=== PATIENT | male | born 1995 | race Caucasian/White ===

== ENCOUNTER 2017-06-24 16:16 | Emergency (ER) | payer SELFPAY ==
--- NOTE | 2017-06-24 17:22 | EDM.PDOC ---
<Maura Min - Last Filed: 06/24/17 18:10> ED HPI GENERAL MEDICAL PROBLEM - General Chief Complaint: Abdominal Pain Stated Complaint: POSSIBLE APPENDEX Time Seen by Provider: 06/24/17 17:10 Source of Information: Reports: Patient History Limitations: Reports: No Limitations - History of Present Illness INITIAL COMMENTS - FREE TEXT/NARRATIVE: Patient is a 22 YO male who presents today with right lower quadrant pain. He states this started approximately 1 week ago. He describes the pain as a squeezing sensation located in all lower quadrants but greatest in the RLQ, wrapping around to his back. He states this was intermittent until this morning when it became constant. He woke up feeling nauseous and reports diarrhea all day today. He denies blood in the stool. His last formed bowel movement was yesterday which he reports was normal for him. He has only drank some lemonade and milk today. He ate a full meal including a hamburger and fries yesterday. He has had an appetite but is scared to eat due to the diarrhea. He denies any symptoms like this in the past. He does state his daughter was sick with an upper respiratory cold recently. Right Lower Abdominal Pain Score (Numeric/FACES): 4 - Related Data Allergies Allergy/AdvReac Type Severity Reaction Status Date / Time No Known Allergies Allergy Verified 06/24/17 16:33 Home Meds: Home Meds . [No Known Home Meds] 06/24/17 [History] Past Medical History - Past Health History Medical/Surgical History: Denies Medical/Surgical History Social & Family History - Tobacco Use Smoking Status *Q: Current Every Day Smoker Years of Tobacco use: 4 Packs/Tins Daily: 0.5 - Caffeine Use Caffeine Use: Reports: Soda - Recreational Drug Use Recreational Drug Use: Yes Drug Use in Last 12 Months: Yes Recreational Drug Type: Reports: Marijuana/Hashish Recreational Drug Use Frequency: Weekly ED ROS GENERAL - Review of Systems Review Of Systems: See Below Constitutional: Reports: No Symptoms Respiratory: Reports: No Symptoms Cardiovascular: Reports: No Symptoms GI/Abdominal: Reports: Abdominal Pain (LLQ and RLQ radiating into the right back ), Diarrhea, Nausea. Denies: Bloody Stool, Distension, Vomiting : Reports: No Symptoms Musculoskeletal: Reports: No Symptoms Skin: Reports: No Symptoms Neurological: Reports: No Symptoms Psychiatric: Reports: No Symptoms ED EXAM, GI/ABD - Physical Exam Exam: See Below Exam Limited By: No Limitations General Appearance: Alert, WD/WN, No Apparent Distress Throat/Mouth: Normal Inspection, Normal Teeth, Normal Gums, Normal Oropharynx, Normal Voice Head: Atraumatic, Normocephalic Respiratory/Chest: No Respiratory Distress, Lungs Clear, Normal Breath Sounds Cardiovascular: Normal Peripheral Pulses, Regular Rate, Rhythm, No Murmur GI/Abdominal Exam: Normal Bowel Sounds, Soft, Tender (slightly tender in the right lower quadrant), Other (negative obturator sign, negative psoas sign). No : Distended, Guarding, Rebound Back Exam: No: CVA Tenderness (L), CVA Tenderness (R) Neurological: Alert, Oriented, CN II-XII Intact, Normal Cognition, Normal Gait Psychiatric: Normal Affect, Normal Mood Skin Exam: Warm, Dry, Intact, Normal Color Course - Vital Signs Last Recorded V/S: Last Vital Signs Temp 37.3 C 06/24/17 16:26 Pulse 82 06/24/17 16:26 Resp 18 06/24/17 16:26 BP 118/85 06/24/17 16:26 Pulse Ox 98 06/24/17 16:26 - Orders/Labs/Meds Orders: Active Orders 24 hr Category Date Time Status Peripheral IV Care [RC] . DIRECTED Care 06/24/17 17:46 Active Peripheral IV Insertion Adult [OM.PC] Routine Oth 06/24/17 17:46 Ordered Labs: Laboratory Tests 06/24/17 06/24/17 06/24/17 Range/Units 16:40 16:40 17:35 WBC 8.31 (4.23-9.07) K/mm3 RBC 5.88 (4.63-6.08) M/mm3 Hgb 18.0 H (13.7-17.5) gm/L Hct 51.2 H (40.1-51.0) % MCV 87.1 (79.0-92.2) fl MCH 30.6 (25.7-32.2) pg MCHC 35.2 (32.2-35.5) g/dl RDW Std Deviation 41.1 (35.1-43.9) fL Plt Count 241 (163-337) K/mm3 MPV 10.2 (9.4-12.3) fl Neut % (Auto) Cancelled Lymph % (Auto) Cancelled Caroline % (Auto) Cancelled Eos % (Auto) Cancelled Baso % (Auto) Cancelled Neut # (Auto) Cancelled Lymph # (Auto) Cancelled Caroline # (Auto) Cancelled Eos # (Auto) Cancelled Baso # (Auto) Cancelled Neutrophils % (Manual) 69 H (40-60) % Band Neutrophils % 0 (0-10) % Lymphocytes % (Manual) 28 (20-40) % Atypical Lymphs % 0 % Monocytes % (Manual) 2 (2-10) % Eosinophils % (Manual) 1 (0.8-7.0) % Basophils % (Manual) 0 L (0.2-1.2) Manual Slide Review Cancelled Platelet Estimate Adequate RBC Morph Comment Normal Sodium 145 (136-145) mEq/L Potassium 3.7 (3.5-5.1) mEq/L Chloride 105 (98-107) mEq/L Carbon Dioxide 27 (21-32) mEq/L Anion Gap 16.7 H (5-15) BUN 12 (7-18) mg/dL Creatinine 0.9 (0.7-1.3) mg/dL Est Cr Clr Drug Dosing 113.68 mL/min Estimated GFR (MDRD) > 60 (>60) mL/min BUN/Creatinine Ratio 13.3 L (14-18) Glucose 91 (74-106) mg/dL Calcium 9.8 (8.5-10.1) mg/dL Total Bilirubin 1.3 H (0.2-1.0) mg/dL AST 15 (15-37) U/L ALT 17 (16-63) U/L Alkaline Phosphatase 101 (46-116) U/L C-Reactive Protein 0.2 (<1.0) mg/dL Total Protein 8.4 H (6.4-8.2) g/dl Albumin 4.8 (3.4-5.0) g/dl Globulin 3.6 gm/dL Albumin/Globulin Ratio 1.3 (1-2) Urine Color Dark yellow (Yellow) Urine Appearance Clear (Clear) Urine pH 6.0 (5.0-8.0) Ur Specific [place] > or = 1.030 (1.005-1.030) Urine Protein 1+ H (Negative) Urine Glucose (UA) Negative (Negative) Urine Ketones Negative (Negative) Urine Occult Blood Negative (Negative) Urine Nitrite Negative (Negative) Urine Bilirubin 1+ H (Negative) Urine Urobilinogen 0.2 (0.2-1.0) Ur Leukocyte Esterase Negative (Negative) Urine RBC 0-5 (0-5) /hpf Urine WBC 0-5 (0-5) /hpf Ur Epithelial Cells 0-5 (0-5) /hpf Urine Bacteria Moderate H (FEW) /hpf Urine Mucus Many H (FEW) /hpf Meds: Medications Discontinued Medications Generic Name Dose Route Start Last Admin Trade Name Freq PRN Reason Stop Dose Admin Diatrizoate Meglum/Diatrizoate Sod 120 ml 06/24/17 18:35 06/24/17 19:11 Gastrografin 37% PO 06/24/17 18:36 90 ml ONETIME ONE Administration Lactated Ringer's 1,000 mls @ 999 mls/hr 06/24/17 17:46 06/24/17 17:53 Ringers, Lactated IV 06/24/17 18:46 999 mls/hr .BOLUS ONE Administration Iopamidol 150 ml 06/24/17 18:35 06/24/17 19:07 Isovue-300 (61%) IVPUSH 06/24/17 18:36 125 ml ONETIME ONE Administration Sodium Chloride 10 ml 06/24/17 17:46 06/24/17 17:54 Saline Flush FLUSH 10 ml ASDIRECTED PRN Administration Keep Vein Open Sodium Chloride 10 ml 06/24/17 18:35 06/24/17 19:07 Saline Flush FLUSH 10 ml ONETIME PRN Administration IV FLUSH Departure - Departure Disposition: Home, Self-Care 01 Clinical Impression: Gastroenteritis - Discharge Information Instructions: Viral Gastroenteritis, Adult, [id number] Referrals: PCP,None [Primary Care Provider] - Forms: ED Department Discharge Additional Instructions: Clear fluids today and tomorrow. Zapata diet as tolerated. Zapata diet recommendations include bread, crackers, rice, toast, egg whites, yogurt, etc. Follow-up with your primary care provider if symptoms persist beyond one week. Recommend starting a probiotic. These are available [id number]. Please return to the ER if your symptoms change or worsen. - My Orders Last 24 Hours: My Active Orders 06/24/17 17:46 Peripheral IV Care [RC] . DIRECTED Peripheral IV Insertion Adult [OM.PC] Routine - Assessment/Plan Last 24 Hours: My Active Orders 06/24/17 17:46 Peripheral IV Care [RC] . DIRECTED Peripheral IV Insertion Adult [OM.PC] Routine <Marycruz Latham - Last Filed: 06/25/17 01:26> ED HPI GENERAL MEDICAL PROBLEM - History of Present Illness INITIAL COMMENTS - FREE TEXT/NARRATIVE: Patient initially seen by JAKI Martinez. I have seen the patient and agree with the above HPI. Duration: Week(s): (1) Location: Reports: Abdomen (RLQ) ED EXAM, GI/ABD - Physical Exam GI/Abdominal Exam: Tender Course - Radiology Interpretation Free Text/Narrative:: CT abdomen and pelvis Technique: Multiple axial sections were obtained from above the dome of the diaphragm inferiorly through the pubic symphysis. Intravenous and oral contrast was utilized. Delayed images were obtained through the bladder. Comparison: No previous study. Findings: Visualized lung bases shows nothing acute. Liver appears within normal limits. Spleen appears normal. Adrenal glands contain no nodules. Pancreas appears within normal limits. Kidneys show symmetric contrast enhancement without hydronephrosis or mass. Aorta shows no aneurysmal dilatation. No retroperitoneal adenopathy or mesenteric abnormalities are seen. No pelvic mass or adenopathy is seen. Fluid is seen within the rectum and within portions of the sigmoid colon as well as descending colon. Mild amount of increased gas is noted throughout the small bowel as well as within portions of the colon. Appendix not definitely visualized but no enlarged tubular structures are seen within the right lower abdomen. No inflammatory change or free fluid is seen. Delayed images were obtained which shows contrast within the bladder. Impression: 1. Gas within mildly dilated small bowel as well as increased gas within the colon having the appearance of an ileus. Fluid within the colon and rectum is noted. Findings raise the possibility of gastroenteritis. 2. Appendix not definitely visualized. 3. No additional abnormality is identified on CT study of the abdomen and pelvis. - Re-Assessments/Exams Free Text/Narrative Re-Assessment/Exam: 06/24/17 20:32 I have seen the patient and agree with the history of present illness, review of systems and physical exam as documented by JAGJIT Martinez. Patient was offered pain medication but declined. I reviewed the CT and lab results with the patient. Will treat for gastroenteritis. Plan will be to discharge home at this time. Discharge instructions as documented . Departure - Departure Time of Disposition: 20:33 Condition: Fair
[2017-06-24] MEDS ORDERED: Diatrizoate Meglumine/Diatrizoate Sodium 37% 120 ML Bottle PO ONE ×2 (17:40→18:35)
[2017-06-24] MEDS ORDERED: Iodixanol 652 MG/ML 100 ML Bottle IVPUSH ONE (17:40)
[2017-06-24] MEDS ORDERED: Lactated Ringers 1,000 ML IV ONE (17:46)
[2017-06-24] MEDS ORDERED: Sodium Chloride 0.9% 10 ML Syringe FLUSH PRN ×2 (17:46→18:35)
[2017-06-24] MEDS ORDERED: Iopamidol 612 MG/ML 150 ML Bottle IVPUSH ONE (18:35)
--- NOTE | 2017-06-24 19:38 | CT ---
CT abdomen and pelvis Technique: Multiple axial sections were obtained from above the dome of the diaphragm inferiorly through the pubic symphysis. Intravenous and oral contrast was utilized. Delayed images were obtained through the bladder. Comparison: No previous study. Findings: Visualized lung bases shows nothing acute. Liver appears within normal limits. Spleen appears normal. Adrenal glands contain no nodules. Pancreas appears within normal limits. Kidneys show symmetric contrast enhancement without hydronephrosis or mass. Aorta shows no aneurysmal dilatation. No retroperitoneal adenopathy or mesenteric abnormalities are seen. No pelvic mass or adenopathy is seen. Fluid is seen within the rectum and within portions of the sigmoid colon as well as descending colon. Mild amount of increased gas is noted throughout the small bowel as well as within portions of the colon. Appendix not definitely visualized but no enlarged tubular structures are seen within the right lower abdomen. No inflammatory change or free fluid is seen. Delayed images were obtained which shows contrast within the bladder. Impression: 1. Gas within mildly dilated small bowel as well as increased gas within the colon having the appearance of an ileus. Fluid within the colon and rectum is noted. Findings raise the possibility of gastroenteritis. 2. Appendix not definitely visualized. 3. No additional abnormality is identified on CT study of the abdomen and pelvis. Diagnostic code #2
== END 2017-06-24 20:40 | disposition home or self-care (01) ==
LOC: JD.ED 16:16
DX: K52.9 Noninfective gastroenteritis and colitis, unspecified (principal); F17.210 Nicotine dependence, cigarettes, uncomplicated
CPT/HCPCS: 36415; 74177; 80053; 81001; 85025; 86140; 96360; 99284; J7050; J7120; Q9963; Q9967; 99283

== ENCOUNTER 2017-11-01 14:46 | Emergency (ER) | payer SELFPAY ==
[2017-11-01] MEDS ORDERED: Sodium Chloride 0.9% 10 ML Syringe FLUSH PRN (15:25)
[2017-11-01] MEDS ORDERED: Ketorolac 30 MG/ML SDV IVPUSH ONE (15:25)
[2017-11-01] MEDS ORDERED: Prochlorperazine 10 MG/2 ML SDV IVPUSH ONE (15:26)
[2017-11-01] MEDS ORDERED: diphenhydrAMINE 50 MG/ML SDV IVPUSH ONE (15:26)
[2017-11-01] MEDS ORDERED: Diphtheria,Pertussis(Acell),Tetanus Vaccine 0.5 ML SDV IM ONE (15:26)
--- NOTE | 2017-11-01 17:19 | EDM.PDOC ---
ED HPI GENERAL MEDICAL PROBLEM - General Chief Complaint: Headache Stated Complaint: HEADACHE Time Seen by Provider: 11/01/17 15:25 Source of Information: Reports: Patient History Limitations: Reports: No Limitations - History of Present Illness INITIAL COMMENTS - FREE TEXT/NARRATIVE: The patient presents with a headache. 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 He had no LOC and he had no pain right away but after work he developed a headache. He took some tylenol and an antiinflammatory and that did not help. He has no neck pain, blurred vision, double vision, numbness or weakness. He had an injury to his right leg weeks ago. His tetanus was not up to date so he asked if we could up date that now. Onset: Gradual Duration: Hour(s): Location: Reports: Head Quality: Reports: Ache Severity: Moderate Improves with: Reports: None Worsens with: Reports: None Associated Symptoms: Reports: Headaches. Denies: Chest Pain, Cough, Fever/ Chills, Nausea/Vomiting, Shortness of Breath Left Headache Pain Score (Numeric/FACES): 7 - Related Data Allergies Allergy/AdvReac Type Severity Reaction Status Date / Time No Known Allergies Allergy Verified 10/30/17 03:36 Home Meds: Home Meds . [No Known Home Meds] 10/30/17 [History] Past Medical History - Past Health History Medical/Surgical History: Denies Medical/Surgical History Social & Family History - Tobacco Use Smoking Status *Q: Current Every Day Smoker Years of Tobacco use: 4 Packs/Tins Daily: 0.5 - Caffeine Use Caffeine Use: Reports: Soda Other Caffeine Use: daily - Recreational Drug Use Recreational Drug Type: Reports: Marijuana/Hashish ED ROS GENERAL - Review of Systems Review Of Systems: See Below Constitutional: Reports: No Symptoms HEENT: Reports: No Symptoms Respiratory: Reports: No Symptoms Cardiovascular: Reports: No Symptoms Endocrine: Reports: No Symptoms GI/Abdominal: Reports: No Symptoms : Reports: No Symptoms Musculoskeletal: Reports: No Symptoms Skin: Reports: No Symptoms Neurological: Reports: Headache - Physical Exam Exam: See Below Exam Limited By: No Limitations General Appearance: Alert, No Apparent Distress Ears: Normal External Exam Nose: Normal Inspection Head Exam: Normocephalic, Other (Mild tenderness to the left side of his head) Neck: Normal Inspection, Supple, Non-Tender Respiratory/Chest: No Respiratory Distress, Lungs Clear, Normal Breath Sounds Cardiovascular: Regular Rate, Rhythm, No Edema, No Murmur GI/Abdominal: Soft, Non-Tender, No Organomegaly, No Mass Neuro Exam (Abbreviated): Alert, Oriented, No Motor/Sensory Deficits Course - Vital Signs Last Recorded V/S: Last Vital Signs Temp 98.5 F 11/01/17 14:59 Pulse 76 11/01/17 14:59 Resp 20 11/01/17 14:59 BP 120/69 11/01/17 14:59 Pulse Ox 95 11/01/17 14:59 - Orders/Labs/Meds Orders: Active Orders 24 hr Category Date Time Status Peripheral IV Care [RC] . DIRECTED Care 11/01/17 15:25 Active Vaccines to be Administered [RC] PER UNIT ROUTINE Care 11/01/17 15:26 Active Sodium Chloride 0.9% [Saline Flush] Med 11/01/17 15:25 Active 10 ml FLUSH ASDIRECTED PRN Peripheral IV Insertion Adult [OM.PC] Routine Oth 11/01/17 15:25 Ordered Medication Orders Sodium Chloride (Saline Flush) 10 ml FLUSH ASDIRECTED PRN PRN Reason: Keep Vein Open Last Admin: 11/01/17 15:46 Dose: 10 ml Meds: Medications Generic Name Dose Route Start Last Admin Trade Name Freq PRN Reason Stop Dose Admin Sodium Chloride 10 ml 11/01/17 15:25 11/01/17 15:46 Saline Flush FLUSH 10 ml ASDIRECTED PRN Administration Keep Vein Open Discontinued Medications Generic Name Dose Route Start Last Admin Trade Name Freq PRN Reason Stop Dose Admin Diphenhydramine HCl 50 mg 11/01/17 15:26 11/01/17 15:45 Benadryl IVPUSH 11/01/17 15:27 50 mg ONETIME ONE Administration Diphtheria/Tetanus/Acell Pertussis 0.5 ml 11/01/17 15:26 11/01/17 15:46 Adacel IM 11/01/17 15:27 0.5 ml .ONCE ONE Administration Ketorolac Tromethamine 30 mg 11/01/17 15:25 11/01/17 15:45 Toradol IVPUSH 11/01/17 15:26 30 mg ONETIME ONE Administration Prochlorperazine Edisylate 10 mg 11/01/17 15:26 11/01/17 15:46 Compazine IVPUSH 11/01/17 15:27 10 mg ONETIME ONE Administration - Re-Assessments/Exams Free Text/Narrative Re-Assessment/Exam: 11/01/17 17:27 I updated his tetanus and I ordered an IV saline lock, toradol 30mg IV, benadryl 50mg IV and compazine 10mg IV. He feels better. I will discharge him home. Departure - Departure Time of Disposition: 17:30 Disposition: Home, Self-Care 01 Condition: Good Clinical Impression: Headache Qualifiers: Headache type: unspecified Headache chronicity pattern: acute headache Intractability: not intractable Qualified Code(s): R51 - Headache - Discharge Information *PRESCRIPTION DRUG MONITORING PROGRAM REVIEWED*: Not Applicable *COPY OF PRESCRIPTION DRUG MONITORING REPORT IN PATIENT KELLY: Not Applicable Referrals: PCP,None [Primary Care Provider] - Forms: ED Department Discharge Additional Instructions: Go home and rest in a dark quiet room. Take tylenol or motrin if you have any more headaches. Please return if you are worse. - My Orders Last 24 Hours: My Active Orders 11/01/17 15:25 Peripheral IV Care [RC] . DIRECTED Sodium Chloride 0.9% [Saline Flush] 10 ml FLUSH ASDIRECTED PRN Peripheral IV Insertion Adult [OM.PC] Routine 11/01/17 15:26 Vaccines to be Administered [RC] PER UNIT ROUTINE - Assessment/Plan Last 24 Hours: My Active Orders 11/01/17 15:25 Peripheral IV Care [RC] . DIRECTED Sodium Chloride 0.9% [Saline Flush] 10 ml FLUSH ASDIRECTED PRN Peripheral IV Insertion Adult [OM.PC] Routine 11/01/17 15:26 Vaccines to be Administered [RC] PER UNIT ROUTINE
== END 2017-11-01 17:40 | disposition home or self-care (01) ==
LOC: JD.ED 14:46
DX: R51 Headache (principal); F17.210 Nicotine dependence, cigarettes, uncomplicated
CPT/HCPCS: 90471; 90715; 96374; 96375; 99284; J0780; J1200; J1885; J7050

== ENCOUNTER 2017-11-04 00:38 | Emergency (ER) | payer SELFPAY ==
--- NOTE | 2017-11-04 01:50 | EDM.PDOC ---
ED HPI GENERAL MEDICAL PROBLEM - General Chief Complaint: General Stated Complaint: RHB Time Seen by Provider: 11/04/17 01:22 Source of Information: Reports: Patient History Limitations: Reports: No Limitations - History of Present Illness INITIAL COMMENTS - FREE TEXT/NARRATIVE: Medical records indicate that the patient was seen in this ED by Dr. Gabriela Cramer on 10/19/2017 with a complaint of 2 weeks of nausea and diarrhea, after starting sertraline for anxiety. He was prescribed Zofran. The patient was then seen in this ED by Dr. Efra Cramer on 10/26/2017 with a complaint of a lump to the back of his neck for the previous 2 months. He was found to have a minimally enlarged lymph node, and reassured. The patient was then seen again in this ED by Dr. Gabriela Cramer on 10/30/2017 with chest pain. A workup was negative. The patient was then seen again in this ED by Dr. Jhaveri on 11/01/2017 with a complaint of a headache after striking his head as he got into his car. Again, he was reassured. The patient then followed up with his PCP, Marcy Rutledge, this past Thursday , 11/02/2017. The patient states that they discussed the enlarged lymph node, and that she ordered an outpatient ultrasound, but that his anxiety issue was not discussed. The patient now presents stating that he developed the sensation of a strong, but not rapid, heartbeat, a headache to the back right of his head, and right upper extremity tingling and floating sensation around 00:30, shortly after he went to bed. The patient states that he felt quite anxious. His symptoms resolved shortly after arrival to the ED. The patient states that he stopped taking his Zoloft shortly after he saw Dr. Gabriela Cramer on 10/19/2017. Here in the ED, the patient is found to be hemodynamically stable, although his oxygen saturation was noted to be 98% on room air. head Pain Score (Numeric/FACES): 4 - Related Data Allergies Allergy/AdvReac Type Severity Reaction Status Date / Time No Known Allergies Allergy Verified 11/04/17 01:05 Home Meds: Home Meds . [No Known Home Meds] 10/30/17 [History] Past Medical History Psychiatric History: Reports: Anxiety (untreated) - Past Surgical History HEENT Surgical History: Reports: Oral Surgery (wisdom teeth extraction) Social & Family History - Family History Family Medical History: Noncontributory - Tobacco Use Smoking Status *Q: Current Every Day Smoker Years of Tobacco use: 4 Packs/Tins Daily: 0.5 Packs/Tins Daily Comment: Down from 1 ppd - Caffeine Use Caffeine Use: Reports: Soda Other Caffeine Use: daily - Alcohol Use Alcohol Use History: No - Recreational Drug Use Recreational Drug Use: Yes Drug Use in Last 12 Months: Yes Recreational Drug Type: Reports: Marijuana/Hashish (last smoked mid September 2017) - Living Situation & Occupation Living situation: Reports: Single, Other (with roommates) Occupation: Employed (Videofropper) ED ROS GENERAL - Review of Systems Review Of Systems: ROS reveals no pertinent complaints other than HPI. ED EXAM, GENERAL - Physical Exam Exam: See Below Exam Limited By: No Limitations General Appearance: Alert, WD/WN, No Apparent Distress Eye Exam: Bilateral Eye: EOMI, Normal Inspection Ears: Normal External Exam, Hearing Grossly Normal Nose: Normal Inspection, No Blood Throat/Mouth: Normal Inspection, Normal Lips, Normal Voice, No Airway Compromise Head: Atraumatic, Normocephalic Neck: Normal Inspection, Full Range of Motion, Lymphadenopathy (R) (VERY small - less than 0.5 cm diameter, along the posterior cervical chain) Respiratory/Chest: No Respiratory Distress, Lungs Clear, Normal Breath Sounds, No Accessory Muscle Use Cardiovascular: Normal Peripheral Pulses, Regular Rate, Rhythm, No Edema, No Gallop, No JVD, No Murmur, No Rub Peripheral Pulses: 4+: Radial (L), Radial (R) GI/Abdominal: Normal Bowel Sounds, Soft, Non-Tender, No Organomegaly, No Distention, No Abnormal Bruit, No Mass (Male) Exam: Deferred Rectal (Males) Exam: Deferred Back Exam: Normal Inspection, Full Range of Motion, NT Extremities: Normal Inspection, Normal Range of Motion, No Pedal Edema, Normal Capillary Refill Neurological: Alert, Oriented, Normal Cognition, No Motor/Sensory Deficits Psychiatric: Anxious Skin Exam: Warm, Dry, Intact, Normal Color, No Rash Course - Vital Signs Last Recorded V/S: Last Vital Signs Temp 37.1 C 11/04/17 01:02 Pulse 77 11/04/17 01:02 Resp 18 08/15/18 01:02 BP 125/81 11/04/17 01:02 Pulse Ox 98 11/04/17 01:02 - Re-Assessments/Exams Free Text/Narrative Re-Assessment/Exam: 11/04/17 01:40 The patient presents with palpitations, a headache felt to the back right side of his head, and right upper extremity tingling and a floating sensation. All of these symptoms, as well as those symptoms responsible for his 4 prior ED visits since 10/19/2017, can be explained by anxiety and hyperventilation syndrome. The patient was previously on Zoloft, but quit about 2 weeks ago secondary to nausea and diarrhea. I strongly recommended that the patient follow -up with his PCP, aMrcy Rutledge, to discuss other treatment options for anxiety. The patient agreed. Departure - Departure Time of Disposition: 01:42 Disposition: Home, Self-Care 01 Condition: Good Clinical Impression: Hyperventilation syndrome, Anxiety - Discharge Information *PRESCRIPTION DRUG MONITORING PROGRAM REVIEWED*: Not Applicable *COPY OF PRESCRIPTION DRUG MONITORING REPORT IN PATIENT KELLY: Not Applicable Referrals: Marcy Rutledge PA-C [Physician Sleeve Separator] - Additional Instructions: You were seen in the emergency room for heart palpitations, a headache, and right arm tingling and floating sensation. All of your symptoms, including those responsible for your 4 previous ER visits , can be explained by anxiety and hyperventilation syndrome. As discussed, while not harmful, anxiety and hyperventilation adversely affect the quality of your life, and for this reason, we strongly recommend that you talk to your PCP, Marcy Rutledge, about treatment options for anxiety. Be aware that most medicines take several weeks or months to become fully effective , so you need to be patient and persistent. If any other problems, please do not hesitate to return to the ER.
== END 2017-11-04 01:50 | disposition home or self-care (01) ==
LOC: JD.ED 00:38
DX: F45.8 Other somatoform disorders (principal); F41.9 Anxiety disorder, unspecified; F17.210 Nicotine dependence, cigarettes, uncomplicated
CPT/HCPCS: 99283; 99284

== ENCOUNTER 2018-08-18 01:50 | Emergency (ER) | payer SELFPAY ==
--- NOTE | 2018-08-18 06:09 | EDM.PDOC ---
ED HPI GENERAL MEDICAL PROBLEM - General Chief Complaint: Abdominal Pain Stated Complaint: PULSING SENSATION IN STOMACH Time Seen by Provider: 08/18/18 02:00 Source of Information: Reports: Patient History Limitations: Reports: No Limitations - History of Present Illness INITIAL COMMENTS - FREE TEXT/NARRATIVE: The patient presents with abdominal pain and diarrhea. This has been going on for over a week. He says the has a gurgling feeling in the middle of his abdomen and times. It is not associated with anything such as eating. He has no nausea or vomiting. He has some diarrhea at times. He has no dysuria or hematuria. He has no fever or chills. He still has his appendix and gallbladder. Onset: Gradual Duration: Week(s): Location: Reports: Abdomen Quality: Reports: Other (Gurgling) Severity: Mild Improves with: Reports: None Worsens with: Reports: None Associated Symptoms: Reports: No Other Symptoms - Related Data Allergies Allergy/AdvReac Type Severity Reaction Status Date / Time No Known Allergies Allergy Verified 08/18/18 05:55 Home Meds: Home Meds Doxycycline [Vibramycin] 100 mg PO BID #20 cap 02/15/18 [Rx] Past Medical History - Past Health History Medical/Surgical History: Denies Medical/Surgical History Psychiatric History: Reports: Anxiety - Past Surgical History HEENT Surgical History: Reports: Oral Surgery Social & Family History - Family History Family Medical History: Noncontributory - Caffeine Use Caffeine Use: Reports: Soda Other Caffeine Use: daily - Living Situation & Occupation Living situation: Reports: Single, Other (with roommates) Occupation: Employed ([employer]) ED ROS GENERAL - Review of Systems Review Of Systems: See Below Constitutional: Reports: No Symptoms HEENT: Reports: No Symptoms Respiratory: Reports: No Symptoms Cardiovascular: Reports: No Symptoms Endocrine: Reports: No Symptoms GI/Abdominal: Reports: Abdominal Pain, Diarrhea. Denies: Nausea, Vomiting : Reports: No Symptoms Musculoskeletal: Reports: No Symptoms ED EXAM, GI/ABD - Physical Exam Exam: See Below Exam Limited By: No Limitations General Appearance: Alert, No Apparent Distress Ears: Normal External Exam Nose: Normal Inspection Head: Atraumatic, Normocephalic Neck: Normal Inspection Respiratory/Chest: No Respiratory Distress, Lungs Clear, Normal Breath Sounds Cardiovascular: Regular Rate, Rhythm, No Edema, No Murmur GI/Abdominal Exam: Soft, No Organomegaly, No Mass, Tender (Mild tenderness to the mid abdomen) Course - Vital Signs Last Recorded V/S: Last Vital Signs Temp 98 F 08/18/18 05:55 Pulse 70 08/18/18 05:55 Resp 20 08/18/18 05:55 BP 123/70 08/18/18 05:55 Pulse Ox 99 08/18/18 05:55 - Orders/Labs/Meds Orders: Active Orders 24 hr Category Date Time Status Abdomen Series w Chest 1V [CR] Stat Exams 08/18/18 02:39 Taken - Re-Assessments/Exams Free Text/Narrative Re-Assessment/Exam: 08/18/18 06:06 I ordered labs and an x-ray of his abdomen. His x-ray looks good. His CBC and CMP look good. I am not sure what is causing his discomfort. I will have him try some tylenol, motrin and pepcid and see his doctor. Departure - Departure Time of Disposition: 06:10 Disposition: Home, Self-Care 01 Condition: Good Clinical Impression: Abdominal pain Qualifiers: Abdominal location: periumbilical Qualified Code(s): R10.33 - Periumbilical pain - Discharge Information *PRESCRIPTION DRUG MONITORING PROGRAM REVIEWED*: Not Applicable *COPY OF PRESCRIPTION DRUG MONITORING REPORT IN PATIENT KELLY: Not Applicable Referrals: PCP,None [Primary Care Provider] - Fernando Blankenship PA-C [Physician Operations Processor] - Forms: ED Department Discharge Additional Instructions: Drink plenty of fluids. Try some tylenol or motrin for pain. You may also try some pepcid 20mg daily. Please return if you are worse. - My Orders Last 24 Hours: My Active Orders 08/18/18 02:39 Abdomen Series w Chest 1V [CR] Stat - Assessment/Plan Last 24 Hours: My Active Orders 08/18/18 02:39 Abdomen Series w Chest 1V [CR] Stat
--- NOTE | 2018-08-18 08:11 | CR ---
Abdominal series: Supine and upright views of the abdomen were obtained as well as frontal view of the chest. Comparison: Prior chest x-ray of 02/15/18 and prior abdominal and pelvic CT exam of 06/24/17. Bowel gas pattern is normal. No abnormal calcifications or soft tissue abnormality is seen. Bony structures appear within normal limits. No free air is seen. Heart size and mediastinum are normal. Lungs are clear. Impression: 1. Nothing acute is seen on abdominal series. Diagnostic code #1
== END 2018-08-18 05:58 | disposition home or self-care (01) ==
LOC: JD.ED 01:50
DX: R10.33 Periumbilical pain (principal); R19.7 Diarrhea, unspecified
CPT/HCPCS: 36415; 74022; 74022-26; 80053; 85025; 99283; 99284-25

== ENCOUNTER 2019-09-06 14:41 | Emergency (ER) | payer SELFPAY ==
--- NOTE | 2019-09-06 15:13 | EDM.PDOC ---
ED HPI GENERAL MEDICAL PROBLEM - General Chief Complaint: Chest Pain Stated Complaint: CHEST PAIN Time Seen by Provider: 09/06/19 15:10 Source of Information: Reports: Patient, RN Notes Reviewed History Limitations: Reports: No Limitations - History of Present Illness INITIAL COMMENTS - FREE TEXT/NARRATIVE: Patient is a 24-year-old male who presents to the ED for evaluation of his left- sided chest pain. 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 Patient states he pulled over and had a coworker start driving, as he was beginning of a panic attack after this chest pain started. He states after he calm down the chest pain seemed to have gone away. 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 Patient denies any numbness or tingling into the fingers, or any weakness of the extremity, but he just feels like something is not right. He does state that he has a history of a heart murmur, but cannot elaborate on this otherwise he denies any other early cardiac etiologies that his family may have succumbed to. 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 Patient denies any cough/shortness of breath, fever/chills, nausea/ vomiting/diarrhea. He notes that the pain is a sharp shooting pain in nature, he has not been able to reproduce it by himself other than when he was driving the truck. Left Arm Pain Score (Numeric/FACES): 4 - Related Data Allergies Allergy/AdvReac Type Severity Reaction Status Date / Time No Known Allergies Allergy Verified 09/06/19 15:08 Home Meds: Home Meds . [No Known Home Meds] 09/06/19 [History] Past Medical History - Past Health History Medical/Surgical History: Denies Medical/Surgical History Cardiovascular History: Reports: Heart Murmur Respiratory History: Reports: None Gastrointestinal History: Reports: None Genitourinary History: Reports: None Musculoskeletal History: Reports: None Neurological History: Reports: None Psychiatric History: Reports: Anxiety Endocrine/Metabolic History: Reports: None Hematologic History: Reports: None Immunologic History: Reports: None Oncologic (Cancer) History: Reports: None Dermatologic History: Reports: None - Infectious Disease History Infectious Disease History: Reports: None - Past Surgical History HEENT Surgical History: Reports: Oral Surgery Social & Family History - Family History Family Medical History: Noncontributory - Tobacco Use Smoking Status *Q: Current Every Day Smoker Years of Tobacco use: 4 Packs/Tins Daily: 0.5 - Caffeine Use Caffeine Use: Reports: Soda, Tea Other Caffeine Use: daily - Recreational Drug Use Recreational Drug Use: No - Living Situation & Occupation Living situation: Reports: Single, Other (with roommates) Occupation: Employed ([employer]) ED ROS GENERAL - Review of Systems Review Of Systems: Comprehensive ROS is negative, except as noted in HPI. ED EXAM, GENERAL - Physical Exam Exam: See Below Exam Limited By: No Limitations General Appearance: Alert, WD/WN, No Apparent Distress Eye Exam: Bilateral Eye: EOMI, Normal Inspection, PERRL Ears: Normal External Exam Nose: Normal Inspection Throat/Mouth: Normal Inspection, Normal Lips, Normal Teeth, Normal Gums, Normal Oropharynx, Normal Voice, No Airway Compromise Head: Atraumatic, Normocephalic Neck: Normal Inspection, Supple, Non-Tender, Full Range of Motion Respiratory/Chest: No Respiratory Distress, Lungs Clear, Normal Breath Sounds, No Accessory Muscle Use, Other (Left anterior chest is tender on 4th-5th rib distribution, states that this is similar to the pain he experienced.) Cardiovascular: Normal Peripheral Pulses, Regular Rate, Rhythm, No Murmur (pt has history of murmur, however I cannot appreciated murmur on exam) Peripheral Pulses: 3+: Radial (L), Radial (R) GI/Abdominal: Normal Bowel Sounds, Soft, Non-Tender, No Distention, No Mass Extremities: Normal Inspection, Normal Range of Motion, Normal Capillary Refill Neurological: Alert, Oriented, Normal Cognition, No Motor/Sensory Deficits Psychiatric: Normal Affect, Normal Mood Skin Exam: Warm, Dry, Intact, Normal Color, No Rash EKG INTERPRETATION EKG Date: 09/06/19 Time: 15:30 Rhythm: NSR Rate (Beats/Min): 74 [place]: Normal P-Wave: Present QRS: Normal ST-T: Normal QT: Normal Comparison: NA - No Prior EKG EKG Interpretation Comments: No obvious ischemia or acute ST changes noted, reviewed by myself and Dr. Monreal. There is diffuse early repolarization pattern, this is a normal ECG variant for age. Course - Vital Signs Last Recorded V/S: Last Vital Signs Temp 98.4 F 09/06/19 15:05 Pulse 93 09/06/19 15:05 Resp 16 09/06/19 15:05 BP 131/82 09/06/19 15:05 Pulse Ox 98 09/06/19 15:05 - Orders/Labs/Meds Orders: Active Orders 24 hr Category Date Time Status EKG Documentation Completion [RC] STAT Care 09/06/19 15:13 Ordered Chest 2V [CR] Stat Exams 09/06/19 15:13 Ordered Labs: Laboratory Tests 09/06/19 09/06/19 Range/Units 14:40 14:40 WBC 5.80 (4.23-9.07) K/mm3 RBC 5.11 (4.63-6.08) M/mm3 Hgb 16.4 (13.7-17.5) gm/dl Hct 46.1 (40.1-51.0) % MCV 90.2 D (79.0-92.2) fl MCH 32.1 (25.7-32.2) pg MCHC 35.6 H (32.2-35.5) g/dl RDW Std Deviation 40.6 (35.1-43.9) fL Plt Count 224 (163-337) K/mm3 MPV 8.8 L (9.4-12.3) fl Neut % (Auto) 66.3 (34.0-67.9) % Lymph % (Auto) 18.3 L (21.8-53.1) % [place] % (Auto) 9.5 (5.3-12.2) % Eos % (Auto) 5.0 (0.8-7.0) Baso % (Auto) 0.7 (0.1-1.2) % Neut # (Auto) 3.85 (1.78-5.38) K/mm3 Lymph # (Auto) 1.06 L (1.32-3.57) K/mm3 [place] # (Auto) 0.55 (0.30-0.82) K/mm3 Eos # (Auto) 0.29 (0.04-0.54) K/mm3 Baso # (Auto) 0.04 (0.01-0.08) K/mm3 Sodium 143 (136-145) mEq/L Potassium 4.0 (3.5-5.1) mEq/L Chloride 106 (98-107) mEq/L Carbon Dioxide 26 (21-32) mEq/L Anion Gap 15.0 (5-15) BUN 9 (7-18) mg/dL Creatinine 1.0 (0.7-1.3) mg/dL Est Cr Clr Drug Dosing 104.14 mL/min Estimated GFR (MDRD) > 60 (>60) mL/min BUN/Creatinine Ratio 9.0 L (14-18) Glucose 117 H (74-106) mg/dL Calcium 8.6 (8.5-10.1) mg/dL Total Bilirubin 1.1 H (0.2-1.0) mg/dL AST 17 (15-37) U/L ALT 31 (16-63) U/L Alkaline Phosphatase 76 (46-116) U/L Troponin I < 0.017 (0.00-0.056) ng/mL Total Protein 6.9 (6.4-8.2) g/dl Albumin 3.8 (3.4-5.0) g/dl Globulin 3.1 gm/dL Albumin/Globulin Ratio 1.2 (1-2) - Re-Assessments/Exams Free Text/Narrative Re-Assessment/Exam: 09/06/19 15:27 Patient presents to the ED for evaluation of his left-sided chest pain and left arm pain. Pain was reproducible on exam, suggestive of musculoskeletal etiology in nature. However EKG chest x-ray and basic labs will be obtained to rule out further cardiac etiology. 09/06/19 16:40 Patient's labs are back and within normal limits at this time. Patient will be discharged home with general recommendations he will be directed to take ibuprofen every 6 hours for further pain relief. Departure - Departure Time of Disposition: 16:41 Disposition: Home, Self-Care 01 Condition: Good Clinical Impression: Acute chest wall pain Instructions: Chest Wall Pain, [id number] Referrals: PCP,None [Primary Care Provider] - Forms: ED Department Discharge, ED Return to Work/School Form Additional Instructions: You were evaluated in the ER today regarding your sudden onset left-sided chest pain. Your EKG, chest x-ray, and other lab work are within normal limits at today's visit. You are not suffering from a heart attack, your pain is most likely musculoskeletal in nature, highly recommend you take ibuprofen, 600 mg every 6 hours for further discomfort. It is likely that you strained a chest muscle while moving some heavy furniture due to your line of work. If your chest pain should change in nature, or it does not get much better within a week to 10 days time, recommend you seek care for reevaluation. You may also try ice pack/heat packs to the area to provide further relief. Please return to the ER at any time if symptoms change or worsen. Sepsis Event Note (ED) - Evaluation Sepsis Screening Result: No Definite Risk - Focused Exam Vital Signs: Vital Signs Temp Pulse Resp BP Pulse Ox 09/06/19 15:05 98.4 F 93 16 131/82 98 - My Orders Last 24 Hours: My Active Orders 09/06/19 15:13 EKG Documentation Completion [RC] STAT Chest 2V [CR] Stat - Assessment/Plan Last 24 Hours: My Active Orders 09/06/19 15:13 EKG Documentation Completion [RC] STAT Chest 2V [CR] Stat
--- NOTE | 2019-09-07 07:37 | CR ---
Chest: 2 views of the chest were obtained. Comparison: Prior chest x-ray of 02/15/18. Heart size and mediastinum are normal. Lungs are clear with no acute parenchymal change. Bony structures are unremarkable for the patient's age. Impression: 1. Nothing acute is seen on 2 view chest x-ray. Diagnostic code #1 Study was dictated in MDT
== END 2019-09-06 16:54 | disposition home or self-care (01) ==
LOC: JD.ED 14:41
DX: R07.89 Other chest pain (principal); F17.210 Nicotine dependence, cigarettes, uncomplicated
CPT/HCPCS: 36415; 71046; 71046-26; 80053; 84484; 85025; 93005; 93010; 99283; 99285-25

== ENCOUNTER 2020-12-10 08:39 | Emergency (ER) | payer SELFPAY ==
--- NOTE | 2020-12-10 09:34 | EDM.PDOCBH ---
ED HPI GENERAL MEDICAL PROBLEM - General Chief Complaint: Behavioral/Psych Stated Complaint: ANXIETY Time Seen by Provider: 12/10/20 09:33 Source of Information: Reports: Patient History Limitations: Reports: No Limitations - History of Present Illness INITIAL COMMENTS - FREE TEXT/NARRATIVE: 25-year-old male presents to the ED suffering from generalized anxiety disorder for many years but much worse symptoms as of late. He had a panic attack last Thursday, December 05 and 1 again this morning. He slept only an hour or hour and a half last night due to anxiety. He does use alcohol fairly regularly. Denies street drug use. Denies energy drink use. He states he has had anxiety disorder for several years and used to get chest pain rating into his left upper extremity but this does not seem to happen. Instead he gets pain in his third metatarsal head of his left foot which is unclear as to how this would be related. No associated numbness and tingling in his lower extremities. Panic attack this morning was that of significant shortness of breath but no strong sense of doom. Feeling lightheaded dizzy with some numbness and tingling periorally and upper extremities mildly. At the time he was seen in the ED he was feeling somewhat better although he is mildly anxious. He does smoke cigarettes he is 1/2 pack to a pack per day but is trying to quit. Onset: Other (Generalized anxiety disorder for many years. Getting worse as of late) Duration: Chronic, Getting Worse (With panic attack and pain last week on Thursday and again this morning), Other (Anxiety is interfering with his ability to sleep.) Location: Reports: Generalized Quality: Reports: Other (Generalized anxiety with a feeling of heart racing and difficulty getting his breath at times) Severity: Moderate Improves with: Reports: Other (Improves when he can calm himself down.) Worsens with: Reports: None Context: Denies: Activity (Nothing seems to trigger the events.), Exercise, Lifting, Sick Contact, Trauma, Other Associated Symptoms: Reports: Cough, Malaise, Shortness of Breath, Weakness. Denies: No Other Symptoms, Confusion (Occasional smoker's cough), Chest Pain, cough w sputum, Diaphoresis, Fever/Chills, Headaches, Loss of Appetite, Nausea/Vomiting, Rash, Seizure, Syncope Treatments TRANS ROUTER: Reports: Other (see below) (None.) Left Foot Pain Score (Numeric/FACES): 2 - Related Data Allergies Allergy/AdvReac Type Severity Reaction Status Date / Time No Known Allergies Allergy Verified 12/10/20 09:01 Home Meds: Home Meds Escitalopram [Lexapro] 20 mg PO DAILY #30 tab 12/10/20 [Rx] LORazepam [Ativan] 1 mg PO Q8H #18 tab 12/10/20 [Rx] Past Medical History - Past Health History Medical/Surgical History: Denies Medical/Surgical History Cardiovascular History: Reports: Heart Murmur Respiratory History: Reports: None Gastrointestinal History: Reports: None Genitourinary History: Reports: None Musculoskeletal History: Reports: None Neurological History: Reports: None Psychiatric History: Reports: Anxiety Endocrine/Metabolic History: Reports: None Hematologic History: Reports: None Immunologic History: Reports: None Oncologic (Cancer) History: Reports: None Dermatologic History: Reports: None - Infectious Disease History Infectious Disease History: Reports: None - Past Surgical History HEENT Surgical History: Reports: Oral Surgery Other Musculoskeletal Surgeries/Procedures:: R collar bone broke 4 times, L arm broke once, and broke nose Social & Family History - Family History Family Medical History: No Pertinent Family History - Tobacco Use Tobacco Use Status *Q: Current Every Day Tobacco User Years of Tobacco use: 7 Packs/Tins Daily: 0.5 Used Tobacco, but Quit: No - Caffeine Use Caffeine Use: Reports: Tea Other Caffeine Use: daily - Alcohol Use Days Per Week of Alcohol Use: 7 Number of Drinks Per Day: 6 Total Drinks Per Week: 42 Date of Last Drink: 12/08/20 Time of Last Drink: 23:00 - Recreational Drug Use Recreational Drug Use: No - Living Situation & Occupation Living situation: Reports: Single, Other (with roommates) Occupation: Employed ([employer]) [facility] GENERAL - Review of Systems Review Of Systems: See Below Constitutional: Reports: Fatigue, Decreased Appetite (But not being able to sleep.). Denies: Fever, Chills, Malaise, Weakness HEENT: Reports: No Symptoms Respiratory: Reports: Shortness of Breath, Cough (Occasional cough in the morning related to smoking). Denies: Wheezing, Pleuritic Chest Pain, Sputum, Hemoptysis Cardiovascular: Reports: Chest Pain (Occasional chest discomfort), Lightheadedness ([place] lightheaded and dizzy this morning with anxiety disorder). Denies: Blood Pressure Problem ( with anxiety attack), Claudication, Dyspnea on Exertion, Edema, Orthopnea, Palpitations Endocrine: Reports: Fatigue GI/Abdominal: Reports: No Symptoms : Reports: No Symptoms Musculoskeletal: Reports: No Symptoms Skin: Reports: No Symptoms Neurological: Reports: Dizziness (Sometimes with panic attack), Numbness (Usually in his upper extremities and occasionally periorally associate with anxiety disorder), Tingling, Weakness (When he develops anxiety). Denies: Confusion, Headache, Pre-Existing Deficit, Syncope, Trouble Speaking, Difficulty Walking Psychiatric: Reports: Anxiety Hematologic/Lymphatic: Reports: No Symptoms Immunologic: Reports: No Symptoms ED EXAM, BEHAVIORAL HEALTH - Physical Exam Exam: See Below Exam Limited By: No Limitations General Appearance: Alert, WD/WN, Mild Distress, Other (Temperature is 36.2 degrees heart rate is 69 is sinus respiratory 16 O2 sats are 99% room air BP 12 ) Eye Exam: Bilateral Eye: Normal Inspection, PERRL Throat/Mouth: Normal Inspection, Normal Lips, Normal Teeth, Normal Oropharynx. No: Dysphagia Head: Atraumatic, Normocephalic Neck: Normal Inspection, Supple, Non-Tender, Full Range of Motion. No: Lymphadenopathy (L), Lymphadenopathy (R), Thyromegaly Respiratory/Chest: No Respiratory Distress, Lungs Clear, Normal Breath Sounds, No Accessory Muscle Use Cardiovascular: Normal Peripheral Pulses, Regular Rate, Rhythm, No Edema, No Gallop, No Murmur, No Rub GI/Abdominal: Normal Bowel Sounds, Soft, Non-Tender, No Organomegaly, No Mass, Pelvis Stable, Other (Scaphoid abdomen with no surgical scars) Extremities: Normal Inspection, Normal Range of Motion, Non-Tender, No Pedal Edema Neurological: Alert, CN II-XII Intact, Normal Cognition, Normal Gait, Normal Reflexes, No Motor/Sensory Deficits, Oriented x 3. No: Normal Mood/Affect Psychiatric: Alert, Normal Cognition, Oriented, Other (Anxious). No: Normal Affect, Normal Mood Skin Exam: Warm, Dry, Intact, Normal color, No rash COURSE, BEHAVIORAL HEALTH COMP - Course Vital Signs: Last Vital Signs Temp 36.2 C 12/10/20 08:56 Pulse 69 12/10/20 08:56 Resp 16 12/10/20 08:56 BP 129/71 09/20/21 08:56 Pulse Ox 99 12/10/20 08:56 Re-Assessment/Re-Exam: 25-year-old male presents to the ED for evaluation of increased problems with generalized anxiety disorder with panic disorder. He had a panic attack last week Thursday and again this morning. Anxiety is increased over the last several weeks making it difficult to sleep. He estimates he slept only about an hour to 2 hours last night. Stating it hard to function. The anxiety is definitely interfering with his ability to function in the workplace. He wishes to try medication which he has not tried before. Examination is otherwise n ormal. I am going to place him on Escitalopram starting with 10 mg daily in the morning for the next 4 days and then increase to 20 mg tablet daily. Ativan 0.5 to 1 mg tab to be taken every 8 hours as needed for anxiety or panic attack and to aid sleep at night if necessary. Advised follow-up in the family medicine unit here at the hospital and provided him the appropriate phone numbers. Advised follow-up within the next 3 weeks to check on his progress and to follow him along and provide medication as needed. At this time he did not feel counseling would be worthwhile. Departure - Departure Time of Disposition: 09:46 Disposition: Home, Self-Care 01 Condition: Fair Clinical Impression: Generalized anxiety disorder with panic attacks, Panic disorder - Discharge Information *PRESCRIPTION DRUG MONITORING PROGRAM REVIEWED*: Not Applicable *COPY OF PRESCRIPTION DRUG MONITORING REPORT IN PATIENT KELLY: Not Applicable Prescriptions: LORazepam [Ativan] 1 mg PO Q8H #18 tab Escitalopram [Lexapro] 20 mg PO DAILY #30 tab Referrals: PCP,None [Primary Care Provider] - Forms: ED Department Discharge Additional Instructions: Evaluation in the emergency room this morning in regards to generalized anxiety disorder with panic attacks. Symptoms seem to be worse as of late with 2 panic attacks within the last week. History of generalized anxiety disorder for the last couple of years with symptoms coming and going on an intermittent basis. Recently increased anxiety disc causing disrupted sleep pattern which usually makes things worse as we need sleep to create the neural chemicals that talk to brain cells when we are sleeping. Suggest starting Escitalopram 20 mg tablet. Take 1/2 tablet in the morning for the next 4 days and then increase to a full tablet daily. This will start to bring anxiety symptoms under control after of you have been on it for about 12 days and marked improvement usually within 3 weeks. In the interim may use Ativan 1 mg tablet may take half to 1 tablet every 8 hours as needed for relief of anxiety symptoms and/or panic attack and also to aid sleep if needed. Suggest follow-up with provider in the clinic. There are several providers to choose from when you phone to make an appointment. The phone number to arrange an appointment is [phone]. Ideally I would like you to see one of the providers there in 3 weeks time to see how you are doing and to refill medications as needed. Sepsis Event Note (ED) - Evaluation Sepsis Screening Result: No Definite Risk - Focused Exam Vital Signs: Vital Signs Temp Pulse Resp BP Pulse Ox 12/10/20 08:56 36.2 C 69 16 129/71 99
== END 2020-12-10 10:40 | disposition home or self-care (01) ==
LOC: JD.ED 08:39
DX: F41.0 Panic disorder [episodic paroxysmal anxiety] (principal); Z72.0 Tobacco use
CPT/HCPCS: 99283; 99284

== ENCOUNTER 2021-03-23 19:53 | Emergency (ER) | payer MEDICAID ==
[2021-03-23 21:30] LABS: CORONAVIRUS COVID-19 NAA NEGATIVE (NEGATIVE)
--- NOTE | 2021-03-23 21:57 | EDM.PDOC ---
ED HPI GENERAL MEDICAL PROBLEM - General Chief Complaint: General Stated Complaint: BODY PAIN Time Seen by Provider: 03/23/21 21:26 Source of Information: Reports: Patient History Limitations: Reports: No Limitations, Other (ED vital signs reveal a temp of 99.6, pulse of 68, respiratory rate of 15, blood pressure 137/98, pulse ox 98% on room air.) - History of Present Illness INITIAL COMMENTS - FREE TEXT/NARRATIVE: 25-year-old male presents the emergency department today with complaints of generalized body aches and fatigue that started yesterday afternoon. Patient denies any fever, chills, nausea, vomiting or diarrhea. Denies any headache, cough or shortness of breath. He denies any decreased appetite. Denies any urinary symptoms. He states he has not had his Covid or influenza vaccines. He does admit to smoking half pack daily for the past 7 years. Patient is concerned and states that his blood pressure was quite elevated while at home. States he checked it and it was in the 130s over 90s. States that he is otherwise healthy. He does not take any prescription medications and he does not have a primary care provider that he sees. Generalized Pain Score (Numeric/FACES): 3 - Related Data Allergies Allergy/AdvReac Type Severity Reaction Status Date / Time No Known Allergies Allergy Verified 03/23/21 20:06 Home Meds: Home Meds . [No Known Home Meds] 03/23/21 [History] Past Medical History - Past Health History Medical/Surgical History: Denies Medical/Surgical History Cardiovascular History: Reports: Heart Murmur Respiratory History: Reports: None Gastrointestinal History: Reports: None Genitourinary History: Reports: None Musculoskeletal History: Reports: None Neurological History: Reports: None Psychiatric History: Reports: Anxiety Endocrine/Metabolic History: Reports: None Hematologic History: Reports: None Immunologic History: Reports: None Oncologic (Cancer) History: Reports: None Dermatologic History: Reports: None - Infectious Disease History Infectious Disease History: Reports: None - Past Surgical History HEENT Surgical History: Reports: Oral Surgery Other Musculoskeletal Surgeries/Procedures:: R collar bone broke 4 times, L arm broke once, and broke nose Social & Family History - Family History Family Medical History: No Pertinent Family History - Tobacco Use Tobacco Use Status *Q: Current Every Day Tobacco User Years of Tobacco use: 7 Packs/Tins Daily: 0.5 - Caffeine Use Caffeine Use: Reports: Soda, Tea Other Caffeine Use: daily - Alcohol Use Number of Drinks Per Day: 6 - Recreational Drug Use Recreational Drug Use: No - Living Situation & Occupation Living situation: Reports: Single, Other (with roommates) Occupation: Employed ([employer]) ED ROS GENERAL - Review of Systems Review Of Systems: Comprehensive ROS is negative, except as noted in HPI. ED EXAM, GENERAL - Physical Exam Exam: See Below Exam Limited By: No Limitations General Appearance: Alert, WD/WN, No Apparent Distress Ears: Normal External Exam, Hearing Grossly Normal Nose: Normal Inspection Throat/Mouth: Normal Inspection, Normal Lips, Normal Voice, No Airway Compromise Head: Atraumatic, Normocephalic Neck: Normal Inspection, Supple Respiratory/Chest: No Respiratory Distress, Lungs Clear, Normal Breath Sounds, No Accessory Muscle Use, Chest Non-Tender Cardiovascular: Normal Peripheral Pulses, Regular Rate, Rhythm, No Edema, No Murmur GI/Abdominal: Normal Bowel Sounds, Soft, Non-Tender, No Distention (Male) Exam: Deferred Rectal (Males) Exam: Deferred Back Exam: Normal Inspection Extremities: Normal Inspection Neurological: Alert, Oriented, Normal Cognition Psychiatric: Normal Affect, Normal Mood Skin Exam: Warm, Dry, Intact, Normal Color, No Rash Lymphatic: No Adenopathy Course - Vital Signs Text/Narrative:: As stated above, patient presents with generalized body aches and fatigue that started yesterday afternoon. Patient is hemodynamically stable at the time of my exam. He appears in no distress. Physical exam is unremarkable. Nursing staff has swabbed him for Covid and influenza. Last Recorded V/S: Last Vital Signs Temp 99.6 F 03/23/21 20:02 Pulse 68 03/23/21 20:02 Resp 15 03/23/21 20:02 BP 137/98 H 03/23/21 20:02 Pulse Ox 98 03/23/21 20:02 - Orders/Labs/Meds Labs: Laboratory Tests 03/23/21 Range/Units 20:09 Influenza Type A RNA Negative (NEGATIVE) Influenza Type B RNA Negative (NEGATIVE) SARS-CoV-2 RNA ([facility]) Negative (NEGATIVE) - Re-Assessments/Exams Free Text/Narrative Re-Assessment/Exam: 03/23/21 22:00 Covid and influenza tests returned and they are all negative. Test results were discussed with the patient. Patient likely does have a viral infection and he has been instructed to go home and get plenty of rest and drink plenty of fluids. He can take Tylenol or ibuprofen per label instructions as needed. Recommend that if he develops shortness of breath or cough or starts to feel significantly worse in the next couple of days that he be retested for Covid as it may likely be too soon to obtain a positive result. Patient does ve rbalize understanding of these instructions. He will be discharged home. Departure - Departure Time of Disposition: 21:55 Disposition: Home, Self-Care 01 Condition: Good Clinical Impression: Viral infection - Discharge Information Instructions: Viral Illness, Adult Referrals: PCP,None [Primary Care Provider] - Forms: ED Department Discharge Additional Instructions: You were seen in the emergency department today with complaints of body aches and fatigue that started yesterday afternoon. Physical exam was unremarkable. Your lungs are clear and heart rate is regular. You were tested for Covid and influenza and both of these tests were negative. You likely do have some sort of viral infection, however this cannot be treated with any antibiotics and needs to run its course. Likely will take 10 days time for you to feel better. Should you develop cough, shortness of breath or fever or start to feel worse over the next couple of days, is strongly recommended that you be retested for Covid. Recommend taking Tylenol 650 mg every 4 hours as needed for body aches or fever or ibuprofen 600 mg every 6-8 hours as needed for body aches or fever. Go home and get plenty of rest and drink plenty of fluids. Should your condition worsen or change, do not hesitate returning to the emergency department. Sepsis Event Note (ED) - Focused Exam Vital Signs: Vital Signs Temp Pulse Resp BP Pulse Ox 03/23/21 20:02 99.6 F 68 15 137/98 H 98
== END 2021-03-23 22:09 | disposition home or self-care (01) ==
LOC: JD.ED 19:53
DX: B34.9 Viral infection, unspecified (principal); Z20.822 Contact with and (suspected) exposure to COVID-19
CPT/HCPCS: 0240U; 99283

== ENCOUNTER 2021-05-02 00:55 | Emergency (ER) | payer SELFPAY | END 2021-05-02 02:31 | disposition home or self-care (01) | LOC: JD.ED 00:55 | DX: R07.89 Other chest pain (principal) | CPT/HCPCS: 71046; 71046-26; 93005; 93010; 99284; 99285-25 ==

== ENCOUNTER 2021-05-12 12:38 | Emergency (ER) | payer MEDICAID ==
[2021-05-12] MEDS ORDERED: Proparacaine 0.5% Ophth Soln 15 ML Bottle EYERT STA (12:49)
[2021-05-12] MEDS ORDERED: Ciprofloxacin 0.3% Ophth Soln 5 ML Bottle EYERT ONE (13:06)
[2021-05-12] MEDS ORDERED: Ketorolac 0.5% Ophth Soln 5 ML Bottle EYERT ONE (13:09)
== END 2021-05-12 13:34 | disposition home or self-care (01) ==
LOC: JD.ED 12:38
DX: S05.01XA Injury of conjunctiva and corneal abrasion without foreign body, right eye, initial encounter (principal); Z72.0 Tobacco use; W22.09XA Striking against other stationary object, initial encounter
CPT/HCPCS: 99283; A9270

== ENCOUNTER 2021-08-17 11:33 | Emergency (ER) | payer MEDICAID | END 2021-08-17 12:48 | disposition home or self-care (01) | LOC: JD.ED 11:33 | DX: J34.89 Other specified disorders of nose and nasal sinuses (principal); F17.210 Nicotine dependence, cigarettes, uncomplicated | CPT/HCPCS: 99282; 99283 ==

== ENCOUNTER → 2021-10-05 | Emergency (ER) | payer MEDICAID | LOC: JD.ED 20:32 | DX: Z53.21 Procedure and treatment not carried out due to patient leaving prior to being seen by health care provider (principal) ==

== ENCOUNTER 2021-10-06 23:19 | Emergency (ER) | payer MEDICAID ==
[2021-10-06] MEDS ORDERED: Sodium Chloride 0.9% 1,000 ML IV ONE (23:55)
== END 2021-10-07 01:33 | disposition home or self-care (01) ==
LOC: JD.ED 23:19
DX: R20.2 Paresthesia of skin (principal); F17.210 Nicotine dependence, cigarettes, uncomplicated
CPT/HCPCS: 36415; 71046; 80053; 80306; 80307; 81001; 83735; 83880; 84443; 84484; 85025; 85379; 93005; 96360; 99284; J7030; 93010

== ENCOUNTER 2022-01-06 03:53 | Emergency (ER) | payer MEDICAID | END 2022-01-06 04:57 | disposition home or self-care (01) | LOC: JD.ED 03:53 | DX: M79.622 Pain in left upper arm (principal); Z72.0 Tobacco use | CPT/HCPCS: 99283 ==

== ENCOUNTER 2022-01-12 05:40 | Emergency (ER) | payer MEDICAID | END 2022-01-12 06:55 | disposition home or self-care (01) | LOC: JD.ED 05:40 | DX: M54.12 Radiculopathy, cervical region (principal); Z79.899 Other long term (current) drug therapy | CPT/HCPCS: 99283 ==

== ENCOUNTER 2022-01-16 17:27 | Emergency (ER) | payer MEDICAID | END 2022-01-16 19:10 | disposition home or self-care (01) | LOC: JD.ED 17:27 | DX: R07.89 Other chest pain (principal); X50.0XXA Overexertion from strenuous movement or load, initial encounter; Y99.0 Civilian activity done for income or pay | CPT/HCPCS: 71045; 71045-26; 93005; 93010; 99283; 99285 ==

== ENCOUNTER 2022-09-22 21:43 | Emergency (ER) | payer MEDICAID ==
[2022-09-22 22:58] LABS: TROPONIN I HIGH SENSITIVITY 5 pg/mL (<=76)
[2022-09-22 23:24] LABS: CKMB < 0.5 ng/ml (0-3.6)
== END 2022-09-23 00:01 | disposition home or self-care (01) ==
LOC: JD.ED 21:43
DX: R07.89 Other chest pain (principal); R07.2 Precordial pain
CPT/HCPCS: 36415; 71045; 71045-26; 82553; 84484; 93005; 93010; 99283; 99285

== ENCOUNTER 2023-01-03 11:25 | Emergency (ER) | payer SELFPAY ==
[2023-01-03] MEDS ORDERED: Sodium Chloride 0.9% 10 ML Syringe FLUSH PRN (11:55)
[2023-01-03 12:16] LABS: BASOPHILS PERCENT AUTO 0.8 % (0.0-1.0); EOSINOPHILS ABSOLUTE AUTO 0.1 K/mm3 (0.0-0.4); HEMATOCRIT 44.3 % (42.0-52.0); HEMOGLOBIN 16.1 gm/dl (14.0-18.0); IMMATURE GRAN ABSOLUTE AUTO 0.01 K/mm3 (0.00-0.05); IMMATURE GRAN PERCENT AUTO 0.2 % (0.0-0.4); LYMPHOCYTES ABSOLUTE AUTO 1.4 K/mm3 (1.0-4.8); LYMPHOCYTES PERCENT AUTO 28.4 % (24.0-44.0); MEAN CORPUSCULAR HEMOGLOBIN 32.3 pg (28.0-32.0); MEAN CORPUSCULAR HGB CONC 36.3 g/dl (32.0-36.0); MEAN CORPUSCULAR VOLUME 88.8 fl (83.0-99.0); MEAN PLATELET VOLUME 9.1 fl (9.4-12.4); MONOCYTES ABSOLUTE AUTO 0.3 K/mm3 (0.0-0.8); MONOCYTES PERCENT AUTO 6.2 % (0.0-8.0); NEUTROPHILS ABSOLUTE AUTO 3.1 K/mm3 (1.8-7.7); NEUTROPHILS PERCENT AUTO 62.4 % (41.0-71.0); PLATELET COUNT,PLT 162 K/mm3 (150-400); RED BLOOD CELL COUNT 4.99 M/mm3 (4.52-5.90); WHITE BLOOD CELL COUNT,WBC 4.97 K/mm3 (3.9-11.3)
[2023-01-03 12:38] LABS: ALANINE AMINOTRANSFERASE,ALT 73 U/L (16-63); ALBUMIN 3.8 g/dl (3.4-5.0); ALKALINE PHOSPHATASE 82 U/L (46-116); ANION GAP 14.7 (5-15); ASPARTATE AMNIOTRANSFERASE,AST 67 U/L (15-37); BLOOD UREA NITROGEN,BUN 7 mg/dL (7-18); BUN/CREATININE RATIO 7.8 (14-18); C-REACTIVE PROTEIN <0.2 mg/dL (<1.0); CALCIUM 8.7 mg/dL (8.5-10.1); CARBON DIOXIDE,CO2 26 mEq/L (21-32); CHLORIDE,CL 99 mEq/L (98-107); CREATININE 0.9 mg/dL (0.7-1.3); EST CRCL DRUG DOSING (CG) 114.14 mL/min; ESTIMATED GFR 119 mL/min (>60); GLUCOSE RANDOM 91 mg/dL (70-99); POTASSIUM,K 3.7 mEq/L (3.5-5.1); PROTEIN TOTAL,TP 7.7 g/dl (6.4-8.2); SODIUM,NA 136 mEq/L (136-145)
[2023-01-03 13:17] LABS: APPEARANCE,URINE CLEAR (Clear); BILIRUBIN,URINE NEGATIVE (Negative); COLOR,URINE YELLOW (Yellow); GLUCOSE,URINE NEGATIVE (Negative); KETONES,URINE 1+ (Negative); LEUKOCYTE ESTERASE,URINE NEGATIVE (Negative); NITRITE,URINE NEGATIVE (Negative); OCCULT BLOOD,URINE NEGATIVE (Negative); PROTEIN,URINE 1+ (Negative); UROBILINOGEN,URINE 0.2 (0.2-1.0)
[2023-01-03 13:23] LABS: RBC,URINE 0-5 /hpf (0-5); WBC,URINE 0-5 /hpf (0-5)
[2023-01-03 13:24] LABS: BACTERIA,URINE FEW /hpf (FEW); EPITHELIAL CELLS,URINE 0-5 /hpf (0-5); MUCUS,URINE MANY /hpf (FEW)
== END 2023-01-03 14:11 | disposition home or self-care (01) ==
LOC: JD.ED 11:25
DX: K52.9 Noninfective gastroenteritis and colitis, unspecified (principal); F17.210 Nicotine dependence, cigarettes, uncomplicated; Z86.16 Personal history of COVID-19
CPT/HCPCS: 36415; 74176; 74176-26; 80053; 81001; 83690; 85025; 86140; 99283; 99284

== ENCOUNTER 2023-06-21 16:16 | Emergency (ER) | payer SELFPAY ==
[2023-06-21] MEDS: Sodium Chloride 0.9% 10 ML Syringe FLUSH PRN (17:26)
[2023-06-21 17:38] LABS: BASOPHILS PERCENT AUTO 0.8 % (0.0-1.0); EOSINOPHILS ABSOLUTE AUTO 0.2 K/mm3 (0.0-0.4); HEMATOCRIT 45.1 % (42.0-52.0); IMMATURE GRAN ABSOLUTE AUTO 0.01 K/mm3 (0.00-0.05); IMMATURE GRAN PERCENT AUTO 0.2 % (0.0-0.4); LYMPHOCYTES ABSOLUTE AUTO 0.9 K/mm3 (1.0-4.8); LYMPHOCYTES PERCENT AUTO 18.5 % (24.0-44.0); MEAN CORPUSCULAR HEMOGLOBIN 32.1 pg (28.0-32.0); MEAN CORPUSCULAR HGB CONC 35.5 g/dl (32.0-36.0); MEAN CORPUSCULAR VOLUME 90.4 fl (83.0-99.0); MEAN PLATELET VOLUME 8.7 fl (9.4-12.4); MONOCYTES ABSOLUTE AUTO 0.3 K/mm3 (0.0-0.8); NEUTROPHILS ABSOLUTE AUTO 3.6 K/mm3 (1.8-7.7); NEUTROPHILS PERCENT AUTO 72.5 % (41.0-71.0); PLATELET COUNT,PLT 211 K/mm3 (150-400); RED BLOOD CELL COUNT 4.99 M/mm3 (4.52-5.90); WHITE BLOOD CELL COUNT,WBC 5.02 K/mm3 (3.9-11.3)
[2023-06-21 18:06] LABS: A/G RATIO 1.1 (1-2); ALBUMIN 3.9 g/dl (3.4-5.0); ANION GAP 11.8 (5-15); BUN/CREATININE RATIO 5.6 (14-18); CALCIUM 8.8 mg/dL (8.5-10.1); CREATININE 0.9 mg/dL (0.7-1.3); EST CRCL DRUG DOSING (CG) 118.81 mL/min; POTASSIUM,K 3.8 mEq/L (3.5-5.1); PROTEIN TOTAL,TP 7.4 g/dl (6.4-8.2)
== END 2023-06-21 18:56 | disposition home or self-care (01) ==
LOC: JD.ED 16:16
DX: R07.89 Other chest pain (principal); Z86.16 Personal history of COVID-19
CPT/HCPCS: 36415; 71046; 80053; 84484; 85025; 85379; 93005; 99285; J3490

== ENCOUNTER 2023-07-18 17:40 | Emergency (ER) | payer SELFPAY ==
[2023-07-18] MEDS: Iopamidol 755 Mg/ML 100 ML Bottle IVPUSH ONE (19:01)
[2023-07-18] MEDS: Sodium Chloride 0.9% 100 ML IV SCH (19:01)
== END 2023-07-18 23:00 | disposition home or self-care (01) ==
LOC: JD.ED 17:40
DX: M54.81 Occipital neuralgia (principal); Z79.899 Other long term (current) drug therapy; Z86.16 Personal history of COVID-19
CPT/HCPCS: 70450; 70496; 99284; J3490; Q9967; 99283

== ENCOUNTER 2025-02-22 23:49 | Emergency (ER) | payer SELFPAY ==
[2025-02-23] MEDS ORDERED: Sodium Chloride 0.9% 10 ML Syringe FLUSH PRN (00:34)
[2025-02-23 01:09] LABS: BASOPHILS ABSOLUTE AUTO 0.1 K/mm3 (0.0-0.2); BASOPHILS PERCENT AUTO 1.0 % (0.0-1.0); EOSINOPHILS ABSOLUTE AUTO 0.1 K/mm3 (0.0-0.4); EOSINOPHILS PERCENT AUTO 2.1 % (0.0-6.0); IMMATURE GRAN ABSOLUTE AUTO 0.02 K/mm3 (0.00-0.05); IMMATURE GRAN PERCENT AUTO 0.4 % (0.0-0.4); LYMPHOCYTES ABSOLUTE AUTO 1.0 K/mm3 (1.0-4.8); LYMPHOCYTES PERCENT AUTO 19.2 % (24.0-44.0); MEAN PLATELET VOLUME 8.8 fl (9.4-12.4); MONOCYTES ABSOLUTE AUTO 0.5 K/mm3 (0.0-0.8); MONOCYTES PERCENT AUTO 9.3 % (0.0-8.0); NEUTROPHILS ABSOLUTE AUTO 3.5 K/mm3 (1.8-7.7); NEUTROPHILS PERCENT AUTO 68.0 % (41.0-71.0); NRBC ABSOLUTE 0.00 (0.00-0.02); NRBC PERCENT 0.0 % (0.0-0.2); PLATELET COUNT,PLT 236 K/mm3 (150-400); RED BLOOD CELL COUNT 5.13 M/mm3 (4.52-5.90); WHITE BLOOD CELL COUNT,WBC 5.16 K/mm3 (3.9-11.3)
[2025-02-23 01:44] LABS: BLOOD UREA NITROGEN,BUN 8.0 mg/dL (7-18); CARBON DIOXIDE,CO2 32.0 mEq/L (21-32); CHLORIDE,CL 101.0 mEq/L (98-107); CREATININE 0.8 mg/dL (0.7-1.3); EST CRCL DRUG DOSING (CG) 125.58 mL/min; ESTIMATED GFR 121.0 mL/min (>60); GLUCOSE RANDOM 123.0 mg/dL (70-99); POTASSIUM,K 3.6 mEq/L (3.5-5.1); SODIUM,NA 141.0 mEq/L (136-145)
== END 2025-02-23 02:24 | disposition home or self-care (01) ==
LOC: JD.ED 23:49
DX: R20.2 Paresthesia of skin (principal); Z86.16 Personal history of COVID-19
CPT/HCPCS: 36415; 80048; 83735; 85025; 86140; 99283; 99284